=== PATIENT | male | born 1955 | race Caucasian/White ===

== ENCOUNTER 2020-12-23 13:56 | Emergency (ER) | payer OTHER ==
[~2020-12-23] VITALS: Ht 180.3 cm; Wt 123.6 kg
[2020-12-23 13:58] VITALS: Ht 180.3 cm; Wt 123.6 kg
[2020-12-23] MEDS ORDERED: LEXAPRO10 MG (14:04)
[2020-12-23] MEDS ORDERED: COZAAR50 MG (14:04)
[2020-12-23] MEDS ORDERED: ASPIRIN81 MG PO (14:04)
[2020-12-23] MEDS ORDERED: METOPROLOL TART50 MG (14:04)
[2020-12-23] MEDS ORDERED: TRAZODONE HCL100 MG PO (14:05)
[2020-12-23] MEDS ORDERED: CRESTOR20 MG PO (14:05)
[2020-12-23] MEDS ORDERED: NORVASC10 MG PO (14:05)
[2020-12-23 14:20] LABS: BACTERIA MOD HPF (<MOD); BILIRUBIN NEGATIVE (NEGATIVE); EPITHELIAL CELL CAST 1 LPF (NONE SEEN); KETONE NEGATIVE mg/dL (< 1+); NITRITE POSITIVE (NEGATIVE); PH 5.5 (5.0-8.0); SQUAMOUS EPITHELIAL <1 HPF (0-4); UROBILINOGEN NORMAL mg/dL (< 2); WHITE CELLS - URINE 28 HPF (0-1)
[2020-12-23] MEDS ORDERED: HYDROCODON-ACE1 EAC7 PO (18:01)
[2020-12-23] MEDS ORDERED: ZOFRAN ODT4 MG/UDTAB PO (18:01)
[2020-12-23 20:36] VITALS: BP 120/59
== END 2020-12-23 20:39 | disposition home or self-care (01) ==
LOC: D.ER 13:56
PROVIDERS: Emergency Medicine
DX: K80.20 Calculus of gallbladder without cholecystitis without obstruction (principal); R10.9 Unspecified abdominal pain; I11.0 Hypertensive heart disease with heart failure; I50.9 Heart failure, unspecified; Z79.82 Long term (current) use of aspirin